=== PATIENT | male | born 1965 | race Caucasian/White ===

== ENCOUNTER 2020-06-20 00:40 | Inpatient (IN) | payer OTHER ==
[~2020-06-20] VITALS: Ht 182.9 cm; Wt 117.9 kg
[2020-06-20] VITALS (7 sets, daily range): BP systolic 110–147; BP diastolic 58–97
[2020-06-20 02:42] LABS: HEMATOCRIT 47.3 % (42.0-52.0); HEMOGLOBIN 15.6 gm/dL (14.0-18.0); MCH 28.4 pg (26.0-34.0); MCHC 33.1 g/dL (28.0-37.0); MCV 85.9 fL (80.0-100.0); RBC 5.51 mil/uL (4.50-6.00); RDW 15.8 % (10.5-14.5); WBC 8.9 thou/uL (4.0-11.0)
[2020-06-20 02:45] LABS: CALCIUM 9.5 mg/dL (8.5-10.1); CREATININE 1.2 mg/dL (0.7-1.3); POTASSIUM 3.2 mmol/L (3.5-5.1)
--- NOTE | 2020-06-20 02:59 | NUR ---
ASSUMED PT CARE AT 02:30
--- NOTE | 2020-06-20 16:46 | NUR ---
ATTEMPTED TO CALL REPORT TO 4S. NURSE STATES SHE IS DISCHARGING A PT AND WILL CALL BACK.
--- NOTE | 2020-06-20 18:19 | NUR ---
PT ARRIVED ON THE UNIT AT 1800. PT IS AOX4, VSS, RATES PAIN IN LLE 8/10. PT LEG IS SWOLLEN AND RED WITH SOME DRAINAGE. NURSE ELEVATED LEG ON PILLOW. NURSE EDUCATED PT TO CALL FOR ASSISTANCE. FALL PRECAUTIONS IN PLACE. IV L WRIST IS S/L. CALL LIGHT IN REACH, WILL CONTINUE TO MONITOR.
--- NOTE | 2020-06-21 01:14 | NUR ---
ASSESSED AT START OF SHIFT 1900. PT A&OX4 ORIENTED TO THE UNIT. ADMISSION DONE CHARTED. LLE CELLULITIS NOTED WITH REDNESS AND SWELLING. ELEVATED ON PILLOW. DR MOLINA STOPPED BY TO SEE PT. IV INTACT AND ABX STARTED. VSS. FALL PREC IN PLACE AND CALL LIGHT IN REACH WILL CONT WITH POC TILL EOS.
[2020-06-21 07:20] VITALS: BP 143/80
[2020-06-21 11:39] LABS: ABSOLUTE NEUTROPHILS 4.5 thou/uL (1.4-8.2); BASOPHILS 0.5 % (0.0-2.0); EOSINOPHILS 1.1 % (0.0-3.0); HEMATOCRIT 40.3 % (42.0-52.0); MCH 28.2 pg (26.0-34.0); MCHC 33.4 g/dL (28.0-37.0); MCV 84.5 fL (80.0-100.0); MONOCYTES 10.4 % (1.0-8.0); PLATELET COUNT 189 thou/uL (150-400); RBC 4.77 mil/uL (4.50-6.00); WBC 5.9 thou/uL (4.0-11.0)
--- NOTE | 2020-06-21 11:41 | NUR ---
ASSESSMENT: CM REVIEWED CHART AND SPOKE WITH PATIENT. PT IS HERE DUE TO CELLULITIS AND IS CURRENTLY ON IV ANBX AND ID IS FOLLOWING. PT REPORTS THAT HE LIVES IN A HOUSE WITH OTHERS. PT IS NOT VERY FORTHCOMING WITH INFORMATION. PT SHOWS as PATIENT PAY AND CM ASKED IF THAT IS CORRECT PT REPORTS I THINK I HAVE INSURANCE. CM ASKED IF PATIENT WAS WORKING AND HE STATED YES BUT I AM UNSURE IF I STILL HAVE A JOB. CM STATED THAT CM COULD CALL EMPLOYER TO TRY AND VERIFY HIS INSURAnce AND ASKED FOR EMPLOYERS NAME BUT PT WOULD NOT PROVIDE IT. PT STATES HE WOULD CALL ON HIS OWN AND STATES HE WILL INFORM US IF HE KNOWS IF HE HAS INSURANCE AND WHAT IT IS. CM PROVIDED PATIENT WITH A SAFETY NET PACKET. PT REPORTS HE NEEDS CRUTCHES. CM SPOKE WITH ATTENDING AND PT EVAL WAS PLACED TO DETERMINE THE NEED FOR CRUTCHES. PT REPORTS BEING INDEPENDENT WITH ADLS. CM WILL CONTINUE TO FOLLOW TO ASSIST NEEDED.
[2020-06-21 11:43] LABS: HEMOGLOBIN 13.5 gm/dL (14.0-18.0)
[2020-06-21 11:57] LABS: CALCIUM 8.5 mg/dL (8.5-10.1); CREATININE 0.8 mg/dL (0.7-1.3); POTASSIUM 3.4 mmol/L (3.5-5.1)
[2020-06-21 16:20] VITALS: BP 162/97
--- NOTE | 2020-06-21 17:58 | NUR ---
PT ASSESSED AT START OF SHIFT. LLE VERY RED AND SWOLLEN. OUTLINE OF PEN SHOWING REDDNESS HAD RECEEDED. DID HAVE SOME SEROUS DRAINAGE FROM PUNCTURE SITE THAT DRIED UP THIS AM. HAS BEEN IN BED W/ LEG ELEVATED. THERAPY WORKED W/ PT ON USING CRUTCHES AND HE DID WELL. TYLENOL GIVEN FOR C/O PAIN THIS AFTERNOON.
[2020-06-21 19:38] VITALS: BP 145/84
[2020-06-22 06:26] LABS: HEMATOCRIT 40.3 % (42.0-52.0); HEMOGLOBIN 13.5 gm/dL (14.0-18.0); MCH 28.5 pg (26.0-34.0); MCHC 33.5 g/dL (28.0-37.0); RBC 4.75 mil/uL (4.50-6.00); RDW 15.8 % (10.5-14.5); WBC 7.3 thou/uL (4.0-11.0)
[2020-06-22 06:34] LABS: CALCIUM 8.8 mg/dL (8.5-10.1); CREATININE 0.9 mg/dL (0.7-1.3); POTASSIUM 3.4 mmol/L (3.5-5.1)
--- NOTE | 2020-06-22 08:44 | NUR ---
ASSESSED AT START OF SHIFT 1900. PT A&0X4. IV INTACT WITH ABX. LOWER EXT ELEVATED. URINAL AT BEDSIDE. VSS. DENIES PAIN, N/V. FALL PREC IN PLACE AND CALL LIGHT AT REACH.
[2020-06-22 08:47] VITALS: BP 147/84
--- NOTE | 2020-06-22 14:16 | NUR ---
ON-GOING ASSESSMENT: CM REVIEWED CHART AND SPOKE WITH PHYSICAL THERAPIST. HE REPORTS PT WILL LIKELY NO NEED CRUTCHES AT DISCHARGE PAIN IS IMPROVING AND HE IS ABLE TO WALK BETTER. CM WILL CONTINUE TO FOLLOW. PT REMAINS ON IV ANBX AT THIS TIME.
--- NOTE | 2020-06-22 15:02 | NUR ---
ASSUMED CARE AT 0715. PT IS A&OX4, VSS. PT USES URINAL TO THE SIDE OF THE BED. PT HAS CELLULITIS TO THE LOWER BILATERAL EXTREMITIES. TERBINAFINE TOPICAL WAS APPLIED TO LOWER BILATERAL EXTREMITIES. PT IS ON IV ANTIBIOTICS, AND BEDREST. FALL PRECAUTIONS IN PLACE, CALL LIGHT IN REACH.
[2020-06-22 16:49] VITALS: BP 139/79
[2020-06-22 19:02] VITALS: BP 149/80
--- NOTE | 2020-06-22 19:49 | NUR ---
ASSUMED PT CARE AT 0715. PT IS A&OX4, VSS. PT USES URINAL TO THE SIDE OF BED. PT HAS CELLULITIS TO THE LEFT LOWER EXTREMITY. TERBINAFINE TOPICAL WAS APPLIED TO LEFT LOWER EXTREMITY. PT IS ON IV ANTIBIOTICS, AND UP WITH CRUTCHES SBA. FALL PRECAUTIONS IN PLACE, CALL LIGHT IN REACH.
--- NOTE | 2020-06-22 19:54 | NUR ---
THIS RN AMENDED NURSING ASSESSMENT WITH BEAN/SAUL, I AGREE WITH NURSING NOTE DONE BY MEGHAN.
[2020-06-22 22:24] VITALS: BP 149/80
--- NOTE | 2020-06-23 04:11 | NUR ---
PT AOX4. PT REPORTS 6/10 PAIN IN LLE SORE. PT NOTED TO HAVE NON-PITTING EDEMA. PT DENIES SOB. PT RECEIVING PRN PO APAP Q4HR. PT TOLERATING PO INTAKE OF FLUIDS AND HEART HEALTHY DIET. PT RESTING IN BED THROUGHOUT SHIFT. FREQUENT REPOSITIONING ENCOURAGED. PT NOTED TO SHIFT INDEPENDENTLY WHILE IN BED. PT USING URINAL WITH YELLOW URINE. ENCOURAGED PT TO NOTIFY STAFF FOR ALL NEEDS. CALL LIGHT WITHIN REACH, BED ALARM ON, BED IN LOWEST POSITION, FREQUENT MONITORING WILL CONTINUE.
[2020-06-23 04:35] VITALS: BP 146/96
[2020-06-23 06:06] LABS: HEMATOCRIT 42.8 % (42.0-52.0); HEMOGLOBIN 14.1 gm/dL (14.0-18.0); MCH 28.1 pg (26.0-34.0); MCHC 32.9 g/dL (28.0-37.0); MCV 85.6 fL (80.0-100.0); RDW 15.9 % (10.5-14.5); WBC 6.5 thou/uL (4.0-11.0)
[2020-06-23 06:13] LABS: CALCIUM 9.1 mg/dL (8.5-10.1); CREATININE 0.9 mg/dL (0.7-1.3); POTASSIUM 3.8 mmol/L (3.5-5.1)
[2020-06-23 08:06] VITALS: BP 141/78
--- NOTE | 2020-06-23 13:51 | NUR ---
PT ASSESSED AT START OF SHIFT. LT LEG INFECTION IMPROVING. NO DRAINAGE. KEEPING ELEVATED IN BED. NO C/O PAIN.
[2020-06-23 16:18] VITALS: BP 144/91
--- NOTE | 2020-06-23 16:31 | NUR ---
ASSUMED CARE OF PT AT 1500. REVIEWED ASSESSMENT BY PREVIOUS NURSE, NO CHANGES NOTED. PT RESTING IN BED. FALL PRECAUTIONS IN PLACE AND NURSING WILL CONTINUE TO MONITOR.
[2020-06-23 22:34] VITALS: BP 165/90
--- NOTE | 2020-06-24 05:28 | NUR ---
PT IS PLEASANT AND COOPERATIVE. LLE WITH REDNESS AND SWELLING. CONTINUING TO ELEVATE.AFEBRILE. DENIES PAIN. ANTICIPATE D/C TODAY. NO FURTHER CONCERNS.
[2020-06-24] MEDS ORDERED: KEFLEX500 M1 PO (08:45)
[2020-06-24] MEDS ORDERED: AMLODIPINE BESY10 MG PO (08:46)
[2020-06-24 09:00] VITALS: BP 162/89
--- NOTE | 2020-06-24 10:30 | NUR ---
ASSUMED CARES AT 0700. PT AWAKE, ALERT AND ORIENTED*4. C/O LLE PAIN, STATED THAT TYLENOL DOESN'T HELP AND PREFERS SOMETHING STRONGER. PT DISCUSSED THIS WITH ATTENDING PHYSICIAN AND WAS OKAY TO TAKE TYLENOL OR IBUPROFEN NEEDED. BP ELEVATED THIS AM, BP LOWERING MEDS ADMINISTERED. LEFT LEG REMAINS SIGHTLY EDEMATOUS, DISCOLORED FROM CELLULITIS, PT CONTINUES TO RECEIVE ANTIBIOTICS. TO DC TODAY TO HOME WITH PO ANTIBIOTICS. PT UP WITH 1 SBA, AND W/C AND TOLERATED WELL. Q1H VISUAL CHECKS. CALL LIGHT WITHIN REACH. FALL PRECAUTIONS IN PLACE.
[2020-06-24 10:42] VITALS: BP 162/89
--- NOTE | 2020-06-24 11:32 | NUR ---
PT DISCHARGING TODAY TO HOME WITH NO NEEDS SPOKE WITH PT'S NURSE (APRIL) PT STATED THAT HE FEELS HE NEEDS CRUTCHES AND PT DC RECOMMEDATION IS PATIENT DOES NOT REQUIRE CRUTCHES. NURSE SAID PT SAYS IS HE DOES NOT GET CRUTCHES HE WOULD NOT DC SPOKE WITH ELECTROLYSIS ENGINEER (GARRET) SHE SAID IS PT REFUSE TO LEAVE CALL SECURITY AND HAVE HIM ESCORTED OUT. PT DOES NOT HAVE MONEY TO PAY FOR HIS ABX AND BP MED OR TRANSPORT HOME SO NURSE IS TO GIVE PT CAB VOUCHER AND TO HAVE HIS MEDS CALLED INTO THE [facility] ON [address] AND HAVE IT PUT ON THE [facility] ACCOUNT AND HAVE CAB TAKE HIM TO RN NEUROSURGICAL MEDS AND DIRECTLY TO HIS RESIDENCE.
== END 2020-06-24 14:13 | disposition home or self-care (01) | DRG 603 ==
LOC: ER 00:40 → EROBS 03:05 → 4S 17:58
PROVIDERS: Emergency Medicine; ADMIT Hospitalist; ATTEND Hospitalist
DX: L03.116 Cellulitis of left lower limb (principal); I10 Essential (primary) hypertension; Z79.899 Other long term (current) drug therapy
CPT/HCPCS: 10195